=== PATIENT | male | born 1955 | race Caucasian/White ===

== ENCOUNTER 2020-02-29 09:47 | Inpatient (IN) | payer OTHER ==
[~2020-02-29] VITALS: Ht 165.1 cm; Wt 71.1 kg
--- NOTE | 2020-02-29 09:50 | NUR ---
PT ARRIVED AT 947 WITH CP FOR 2 HOURS LIGHT BULB REPLACER WITH SOB. PT RECEIVED 324 ASA LIGHT BULB REPLACER , ONE NITRO WITHOUT RELIEF.
[2020-02-29] MEDS ORDERED: ASPIRIN 325 MG TABLET PO STA (09:53)
--- NOTE | 2020-02-29 09:57 | NUR ---
941 CODE CARDIAC PAGED 944 CARDIOLOGY PAGED 941 METAL EXPEDITER AWARE 947 PT ARRIVED TO ER TRAUMA 4. 956 DR MATT SPOKE WITH DR MON[place]
[2020-02-29] MEDS ORDERED: NITROGLYCERIN SINGLE TAB 0.4 MG SL PRN (10:00)
--- NOTE | 2020-02-29 10:00 | NUR ---
ER IS READY TO GO. 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 PT MEDICATED WITH NITRO PER DR. MATT.
[2020-02-29] MEDS ORDERED: SODIUM CHLORIDE 0.9% 1,000 ML IV ONE (10:02)
--- NOTE | 2020-02-29 10:03 | NUR ---
DR. MANN AT BEDSIDE.
[2020-02-29] MEDS ORDERED: MIDAZOLAM 1 MG/ML, 5ML ONE (10:06)
[2020-02-29] MEDS ORDERED: BIVALIRUDIN 250 MG ONE (10:06)
[2020-02-29] MEDS ORDERED: LIDOCAINE 2%, 20ML ONE (10:06)
[2020-02-29] MEDS ORDERED: VERAPAMIL 2.5 MG/ML, 2ML ONE (10:06)
[2020-02-29] MEDS ORDERED: FENTANYL PF 100 MCG/2ML ONE (10:06)
[2020-02-29] MEDS ORDERED: HEPARIN 1,000 UNITS/ML, 10ML ONE (10:06)
[2020-02-29 10:07] LABS: BASOPHILS # (AUTO) 0.02 x10^3/uL (0-0.1); BASOPHILS % (AUTO) 0 % (0-1); EOSINOPHILS # (AUTO) 0.04 x10^3/uL (0-0.4); EOSINOPHILS % (AUTO) 0 % (1-7); LYMPHOCYTES # (AUTO) 1.03 x10^3/uL (1-3.4); LYMPHOCYTES % (AUTO) 7 % (22-44); MD NO; MEAN CORPUSCULAR HEMOGLOBIN 30.5 pg (27.5-34.5); MEAN CORPUSCULAR HGB CONC 33.3 g/dL (33.2-36.2); MEAN CORPUSCULAR VOLUME 91.7 fL (81-97); MEAN PLATELET VOLUME 6.8 fL (7.4-10.4); MONOCYTES # (AUTO) 0.74 x10^3/uL (0.2-0.8); MONOCYTES % (AUTO) 5 % (2-9); NEUTROPHILS # (AUTO) 12.14 x10^3/uL (1.8-6.8); NEUTROPHILS % (AUTO) 87 % (42-75); PLATELET COUNT 346 x10^3/uL (130-400); RED BLOOD COUNT 5.36 x10^6/uL (4.38-5.82)
[2020-02-29] MEDS ORDERED: PRASUGREL 10 MG TABLET ONE (10:07)
--- NOTE | 2020-02-29 10:07 | NUR ---
PERSON TO NOTIFY FOR PATIENT: MARYJO MESA AT [phone].
[2020-02-29 10:19] LABS: INTERNATIONAL NORMALIZED RATIO 0.92 (0.93-1.1); PROTHROMBIN TIME 9.7 Seconds (9.6-11.5)
[2020-02-29 10:30] LABS: TROPONIN I 0.893 ng/mL (0.000-0.045)
[2020-02-29] MEDS ORDERED: LISINOPRIL 5 MG TABLET PO ONE (10:30)
[2020-02-29] MEDS ORDERED: SODIUM CHLORIDE FLUSH 10ML SYR IVF PRN (10:30)
[2020-02-29] MEDS ORDERED: SODIUM CHLORIDE 0.9% 1,000 ML IV SCH (11:10)
[2020-02-29] MEDS ORDERED: BIVALIRUDIN 250 MG in SODIUM CHLORIDE 0.9% 50 ML IV SCH (11:10)
[2020-02-29 21:00] VITALS: BP 110/52
[2020-02-29] MEDS: ATORVASTATIN 80 MG TABLET PO SCH (21:05)
[2020-02-29] MEDS: NICOTINE 21 MG/24 HR PATCH.TD24 TD SCH (21:06)
[2020-03-01 04:00] VITALS: BP 104/65
[2020-03-01 04:41] LABS: CHLORIDE 109 mmol/L (98-107)
[2020-03-01 04:50] LABS: ALANINE AMINOTRANSFERASE 45 U/L (12-78); ALBUMIN 2.6 g/dL (3.4-5.0); ALKALINE PHOSPHATASE 42 U/L (45-117); ANION GAP 4 mmol/L (5-15); BILIRUBIN,TOTAL 0.9 mg/dL (0.2-1.0); CALCIUM 7.9 mg/dL (8.5-10.1); CHOLESTEROL, TOTAL 175 mg/dL (140-239); CREATININE 1.07 mg/dL (0.7-1.3); TOTAL PROTEIN 5.6 g/dL (6.4-8.2); TRIGLYCERIDES 153 mg/dL (50-200); VLDL CHOLESTEROL 31 mg/dL (0-25)
[2020-03-01 04:51] LABS: HDL CHOL % 17 % (26-37); HDL CHOLESTEROL (DIRECT) 29 mg/dL (40-60); LDL CHOLESTEROL,CALCULATED 115 mg/dL (54-169)
[2020-03-01 04:58] LABS: BASOPHILS # (AUTO) 0.03 x10^3/uL (0-0.1); BASOPHILS % (AUTO) 0 % (0-1); EOSINOPHILS # (AUTO) 0.06 x10^3/uL (0-0.4); EOSINOPHILS % (AUTO) 0 % (1-7); LYMPHOCYTES # (AUTO) 1.11 x10^3/uL (1-3.4); LYMPHOCYTES % (AUTO) 8 % (22-44); MD NO; MEAN CORPUSCULAR HEMOGLOBIN 30.1 pg (27.5-34.5); MEAN CORPUSCULAR HGB CONC 33.1 g/dL (33.2-36.2); MEAN CORPUSCULAR VOLUME 90.9 fL (81-97); MEAN PLATELET VOLUME 7.4 fL (7.4-10.4); MONOCYTES # (AUTO) 1.29 x10^3/uL (0.2-0.8); MONOCYTES % (AUTO) 9 % (2-9); NEUTROPHILS # (AUTO) 11.68 x10^3/uL (1.8-6.8); NEUTROPHILS % (AUTO) 83 % (42-75); PLATELET COUNT 297 x10^3/uL (130-400); RED BLOOD COUNT 5.07 x10^6/uL (4.38-5.82)
[2020-03-01] MEDS: METOPROLOL SUCCINATE 25 MG TAB.ER.24H PO SCH (05:26)
[2020-03-01] MEDS: ASPIRIN 81 MG TABLET EC PO SCH (05:26)
[2020-03-01] MEDS: PRASUGREL 10 MG TABLET PO SCH (08:47)
[2020-03-01 12:01] VITALS: BP 100/67
[2020-03-01 19:30] VITALS: BP 96/62
[2020-03-01] MEDS: ATORVASTATIN 80 MG TABLET PO SCH (20:03)
[2020-03-01] MEDS: NICOTINE 21 MG/24 HR PATCH.TD24 TD SCH (20:03)
[2020-03-02 02:56] VITALS: BP 95/66
[2020-03-02 05:59] VITALS: BP 118/75
[2020-03-02] MEDS: METOPROLOL SUCCINATE 25 MG TAB.ER.24H PO SCH (05:59)
[2020-03-02] MEDS: ASPIRIN 81 MG TABLET EC PO SCH (05:59)
[2020-03-02 08:45] VITALS: BP 102/66
[2020-03-02 09:11] VITALS: BP 98/62
[2020-03-02] MEDS: PRASUGREL 10 MG TABLET PO SCH (09:13)
[2020-03-02 15:09] VITALS: BP 101/63
[2020-03-02 19:24] VITALS: BP 113/76
[2020-03-02] MEDS: NICOTINE 21 MG/24 HR PATCH.TD24 TD SCH (19:30)
[2020-03-02] MEDS: ATORVASTATIN 80 MG TABLET PO SCH (21:00)
[2020-03-03 01:47] VITALS: BP 117/76
[2020-03-03] MEDS: ASPIRIN 81 MG TABLET EC PO SCH (06:00)
[2020-03-03] MEDS: METOPROLOL SUCCINATE 25 MG TAB.ER.24H PO SCH (06:00)
[2020-03-03 06:22] VITALS: BP 108/77
[2020-03-03 08:09] VITALS: BP 99/67
[2020-03-03] MEDS: PRASUGREL 10 MG TABLET PO SCH (08:40)
[2020-03-03] MEDS ORDERED: ATOR-2 PO (10:22)
[2020-03-03] MEDS ORDERED: PRAS10TA4 PO (10:22)
[2020-03-03] MEDS ORDERED: METO25TA91 PO (10:22)
[2020-03-03] MEDS ORDERED: ASPI81TA45 PO (10:22)
[2020-03-03 12:43] VITALS: BP 116/78
== END 2020-03-03 15:44 | disposition home or self-care (01) | DRG 246 ==
LOC: ED 09:58 → EDIP 10:02 → CCU 11:03 → 5SO 03-01 11:34
PROVIDERS: ADMIT Internal Medicine; ATTEND Internal Medicine
PROC: 027035Z Dilation of Coronary Artery, One Artery with Two Drug-eluting Intraluminal Devices, Percutaneous Approach (ICD-10-PCS; principal; 2020-02-29)
PROC: 4A023N7 Measurement of Cardiac Sampling and Pressure, Left Heart, Percutaneous Approach (ICD-10-PCS; 2020-02-29)
PROC: B2111ZZ Fluoroscopy of Multiple Coronary Arteries using Low Osmolar Contrast (ICD-10-PCS; 2020-02-29)
PROC: B2151ZZ Fluoroscopy of Left Heart using Low Osmolar Contrast (ICD-10-PCS; 2020-02-29)
DX: I21.09 ST elevation (STEMI) myocardial infarction involving other coronary artery of anterior wall (principal); I50.21 Acute systolic (congestive) heart failure; E78.5 Hyperlipidemia, unspecified; Z20.828 Contact with and (suspected) exposure to other viral communicable diseases; F41.9 Anxiety disorder, unspecified; I25.5 Ischemic cardiomyopathy; I27.20 Pulmonary hypertension, unspecified; D72.829 Elevated white blood cell count, unspecified; I25.10 Atherosclerotic heart disease of native coronary artery without angina pectoris; F17.210 Nicotine dependence, cigarettes, uncomplicated; Z90.89 Acquired absence of other organs; Z82.49 Family history of ischemic heart disease and other diseases of the circulatory system; Z80.7 Family history of other malignant neoplasms of lymphoid, hematopoietic and related tissues; Z71.6 Tobacco abuse counseling; Z79.899 Other long term (current) drug therapy
CPT/HCPCS: 36415; 71045; 80047; 80053; 80061; 83036; 84484; 85014; 85018; 85025; 85610; 85730; 87081; 87635; 93005; 93306; 93356; 93458; 99156; 99157; 99285; C1760; C1769; C1894; C9600; G0378; J0583; J1644; J2250; J3010; C1725; C1874; C1887; J7030; Q9967